=== PATIENT | male | born 1990 | race African-American/Black ===

== ENCOUNTER 2024-06-28 17:33 | Emergency (ER) | payer SELFPAY ==
[~2024-06-28 17:33] MED LIST: Iopamidol 300 61% 100 ML VIAL FS ONE
[2024-06-28] MEDS ORDERED: Acetaminophen 500 MG TAB ONE (19:22)
[2024-06-28] MEDS ORDERED: Ondansetron PF 4 MG/2 ML Vial ONE ×2 (19:22→23:06)
[2024-06-28] MEDS ORDERED: Morphine 4 MG/ML VIAL ONE ×2 (19:22→23:06)
[2024-06-28] MEDS ORDERED: Piperacillin/Tazobactam 4.5 GM VIAL ONE (20:08)
[2024-06-28 20:19] LABS: #Basophils 0.04 10x3/uL (0.0-0.2); #Eosinophils 0.11 10x3/uL (0.0-0.5); #Monocytes 1.74 10x3/uL (0.0-1.1); #Neutrophils 10.06 10x3/uL (1.5-8.4); %Basophils 0.3 % (0.0-2.0); %Eosinophils 0.8 % (0.0-6.0); %Lymphocytes 17.1 % (18.0-47.0); %Neutrophils 69.5 % (40.0-75.0); Hematocrit 37.1 % (38.8-50.0); Hemoglobin 12.5 g/dL (13.5-17.5); Mean Corpuscular HGB CONC 33.7 g/dL (32.0-36.0); Mean Corpuscular Hemoglobin 30.4 pg (27.0-33.0); Mean Corpuscular Volume 90.3 fL (81.2-95.1); Platelet Count 271 10x3/uL (150-450); Red Blood Cell (RBC) Count 4.11 10x6/uL (4.32-5.72); White Blood Cell (WBC) Count 14.5 10x3/uL (3.5-10.5)
[2024-06-28 20:23] LABS: ALT (SGPT) 29 U/L (8-55); AST (SGOT) 16 U/L (5-34); Alkaline Phosphatase 139 U/L (40-110); Anion Gap 17 mmol/L (10-20); BUN (Urea Nitrogen) 5 mg/dL (8.9-20.6); Bilirubin, Total 0.5 mg/dL (0.2-1.2); Calc. Creatinine Clearance 0 mL/min (70-130); Calcium 9.9 mg/dL (7.8-10.44); Carbon Dioxide 28 mmol/L (22-29); Chloride 93 mmol/L (98-107); Estimated GFR 122; Globulin 4.4 g/dL (2.4-3.5); Glucose 332 mg/dL (70-105); Potassium 3.7 mmol/L (3.5-5.1); Protein, Total 7.4 g/dL (6.0-8.3); Sodium 134 mmol/L (136-145)
[2024-06-28 20:33] LABS: Bilirubin Neg (Negative); Blood, Urine 10 (Negative); Clarity Clear (Clear); Glucose, Urine (Dipstick) >=1000 mg/dL (Negative); Ketone, Urine 50 mg/dL (Negative); Leukocyte Negative (Negative); Nitrite Negative (Negative); Protein, Urine (Dipstick) 15 mg/dl (Neg-Trace); Specific Gravity, Urine 1.015 (1.005-1.030)
[2024-06-28 20:49] LABS: Bacteria/HPF Rare-Few HPF (None Seen); CAUTI Indications for Culture Pelvic or flank pain; RBC/HPF 0-3 HPF (0-3); WBC/HPF 0-3 HPF (0-3); Yeast-Budding Rare HPF (None Seen)
[2024-06-28 20:56] LABS: Squamous Epithelial 0-3 HPF (0-3)
[2024-06-28 20:58] LABS: Urine Culture Reflex No No
== END 2024-06-29 05:38 | disposition short-term general hospital (02) ==
LOC: CSHERS 17:33
DX: A41.9 Sepsis, unspecified organism (principal); K12.2 Cellulitis and abscess of mouth; K02.9 Dental caries, unspecified; E11.65 Type 2 diabetes mellitus with hyperglycemia; Z59.00 Homelessness unspecified
CPT/HCPCS: 36415; 36416; 70487; 80053; 81001; 83605; 85025; 87040; 93005; 93010; 96361; 96374; 96375; 96376; J2272; J2405; J2543; Q9967